=== PATIENT | female | born 1975 | race Caucasian/White ===

== ENCOUNTER 2017-02-18 03:25 | Emergency (ER) | payer BC ==
[2017-02-18] MEDS ORDERED: Phenergan 25 MG INJ IV ONE (03:50)
[2017-02-18] MEDS ORDERED: TORAdol 30 mg Injection IV ONE (03:50)
[2017-02-18] MEDS ORDERED: Phenergan 25 MG INJ ONE (03:56)
[2017-02-18] MEDS ORDERED: Sodium Chloride 0.9% 1000 ML 1,000 ML ONE (03:56)
[2017-02-18] MEDS ORDERED: TORAdol 30 mg Injection ONE (03:56)
--- NOTE | 2017-02-18 03:58 | ERPHSYRPT ---
- History of Present Illness Time Seen by Provider: 02/18/17 03:45 Source: patient Exam Limitations: no limitations Patient Subjective Stated Complaint: pt states she has been having pain for the last 2 days days which srtarted in her back. states pain is now in lt back/abd and radiating into lt groin. Triage Nursing Assessment: pt alert and oriented, asnwers questions approp. pt ambulatory with steady gait noted. respirations nonlabored with lungs cta. abd soft and nontender with bowel sounds noted in all 4 quads. pt voided small amt cloudy yellow urine. Physician History: FOR THE PAST 3 DAYS PT HAS HAD LEFT LOWER BACK PAIN RADIATING TO THE ABDOMINAL LLQ AND LEFT GROIN, FEVER UP TO 101 DEGREES, CHILLS, DIAPHORESIS AND NAUSEA. LAST BM WAS YESTERDAY & WNL. PT HAS ALSO HAD A COUGH AND SINUS DRAINAGE FOR THE PAST WEEK. PT STATES SHE HAS HAD ELEVATED LIVER FUNCTION TESTS IN THE PAST. Allergies/Adverse Reactions: No Known Drug Allergies Allergy (Verified 02/18/17 03:41) Home Medications: Levothyroxine Sodium 75 Mcg [Synthroid 75 Mcg] 75 mcg PO DAILY 02/18/17 [ History] Loratadine 10 mg [Claritin 10 mg] 10 mg PO DAILY 02/18/17 [History] Rizatriptan Benzoate [Maxalt] mg PO 02/18/17 [History] Triamterene/Hydrochlorothiazid [Maxzide 37.5 mg-25 mg Tablet] 1 each PO DAILY [History] Hx Tetanus, Diphtheria Vaccination/Date Given: No Hx Influenza Vaccination/Date Given: No Hx Pneumococcal Vaccination/Date Given: No Immunizations Up to Date: No - Review of Systems Constitutional: Fever, Chills Ears, Nose, & Throat: Sinus Drainage Respiratory: Cough Abdominal/Gastrointestinal: Abdominal Pain, Nausea, No Vomiting, No Diarrhea Musculoskeletal: Back Pain Endocrine: Excessive Sweating All Other Systems: Reviewed and Negative - Past Medical History Pertinent Past Medical History: Yes Neurological History: No Pertinent History ENT History: No Pertinent History Cardiac History: No Pertinent History Respiratory History: No Pertinent History Endocrine Medical History: Diabetes Type II, Hypothyroidism Musculoskeletal History: No Pertinent History GI Medical History: No Pertinent History History: Other Psycho-Social History: No Pertinent History Female Reproductive Disorders: Menstrual Problems Other Medical History: kidney stone mult times - Past Surgical History Past Surgical History: Yes Neuro Surgical History: No Pertinent History Cardiac: No Pertinent History Respiratory: No Pertinent History Gastrointestinal: No Pertinent History Genitourinary: No Pertinent History Musculoskeletal: No Pertinent History Female Surgical History: No Pertinent History, Section, Hysterectomy Other Surgical History: FISTULA REPAIR 02/03, cysto - Social History Smoking Status: Current every day smoker How long have you smoked: 16 Exposure to second hand smoke: Yes Drug Use: none Patient Lives Alone: No - Female History Hx Last Menstrual Period: hyster Hx Now: No - Nursing Vital Signs Nursing Vital Signs: Initial Vital Signs Temperature 99.3 F 02/18/17 03:26 Pulse Rate 93 H 02/18/17 03:26 Respiratory Rate 18 02/18/17 03:26 Blood Pressure 124/80 02/18/17 03:26 O2 Sat by Pulse Oximetry 97 02/18/17 03:26 Pain Scale Pain Intensity 6 - Physical Exam General Appearance: alert Eye Exam: PERRL/EOMI Ears, Nose, Throat Exam: TMs normal, pharynx normal, moist mucous membranes Neck Exam: normal inspection Respiratory Exam: lungs clear Cardiovascular Exam: normal heart sounds Gastrointestinal/Abdomen Exam: soft, normal bowel sounds, No tenderness Back Exam: normal range of motion Extremity Exam: normal inspection, No pedal edema Neurologic Exam: alert, cooperative Skin Exam: warm, dry SpO2 Interpretation: normal SpO2: 97 Oxygen Delivery: Room Air - Course Nursing assessment & vital signs reviewed: Yes - CT Exams Abdomen/Pelvis CT Interpretation: Tele-radiologist Report (THERE ARE DILATED SEGMENTS OF SMALL BOWEL IN THE LEFT SIDE OF THE ABDOMEN AT MOST LIKELY REPRESENT ILEUS. NONOBSTRUCTING RIGHT RENAL CALCULUS.) Ordered Tests: Active Orders 24 hr Category Date Time Status Clean Catch Urine Specimen STAT Care 02/18/17 03:50 Active IV Insertion STAT Care 02/18/17 03:50 Active ABDOMEN AND PELVIS W/0 CONTRAS [CT] Stat Exams 02/18/17 03:51 Taken AMYLASE Stat Lab 02/18/17 04:01 Completed CBC W DIFF Stat Lab 02/18/17 04:01 Completed CMP Stat Lab 02/18/17 04:01 Completed CULTURE,URINE Stat Lab 02/18/17 04:01 Received HCG QUALITATIVE,SERUM Stat Lab 02/18/17 04:01 Completed LIPASE Stat Lab 02/18/17 04:01 Completed MAG [MAGNESIUM] Stat Lab 02/18/17 04:01 Completed Manual Differential NC Stat Lab 02/18/17 04:01 Completed UA W/ MICROSCOPIC Stat Lab 02/18/17 04:01 Completed Urine Triage Profile Stat Lab 02/18/17 04:01 Completed Medication Summary Generic Name Dose Route Start Last Admin Trade Name Asa PRN Reason Stop Dose Admin Sodium Chloride 1,000 mls @ 125 mls/hr 02/18/17 04:00 02/18/17 04:01 Sodium Chloride 0.9% 1000 Ml IV 03/20/17 03:59 125 mls/hr .Q8H ZELDA Administration Magnesium Oxide 400 mg 02/18/17 10:00 Mag-Ox 400 PO 03/20/17 09:59 BID ZELDA Potassium Chloride 40 meq 02/18/17 10:00 Potassium Chl 40 Meq/30 Ml Oral Solution PO 03/20/17 09:59 DAILY ZELDA Discontinued Medications Generic Name Dose Route Start Last Admin Trade Name Asa PRN Reason Stop Dose Admin Ketorolac Tromethamine 30 mg 02/18/17 03:50 02/18/17 04:00 Toradol 30 Mg Injection IV 02/18/17 03:51 30 mg STAT ONE Administration Ketorolac Tromethamine Confirm 02/18/17 03:56 Toradol 30 Mg Injection Administered 02/18/17 03:57 Dose 30 mg .ROUTE .STK-MED ONE Promethazine HCl 12.5 mg 02/18/17 03:50 02/18/17 04:00 Phenergan 25 Mg Inj IV 02/18/17 03:51 12.5 mg STAT ONE Administration Promethazine HCl Confirm 02/18/17 03:56 Phenergan 25 Mg Inj Administered 02/18/17 03:57 Dose 25 mg .ROUTE .STK-MED ONE Lab/Rad Data: Laboratory Result Diagrams 02/18/17 04:01 02/18/17 04:01 Laboratory Results 02/18/17 02/18/17 02/18/17 Range/Units 04:01 04:01 04:01 WBC (4.0-10.5) K/mm3 RBC (4.1-5.4) M/mm3 Hgb (12.0-16.0) gm/dl Hct (35-47) % MCV (78-100) fl MCH (26-32) pg MCHC (32-36) g/dl RDW (11.5-14.0) % Plt Count (150-450) K/mm3 MPV (6-9.5) fl Segmented Neutrophils (36.0-66.0) % Band Neutrophils (0.0-2.0) % Lymphocytes (Manual) (24-44) % Monocytes (Manual) (0.0-12.0) % Eosinophils (Manual) (0.00-3.0) % Differential Comment Atypical Lymphocytes % Platelet Estimate (NORMAL) Sodium (136-145) mEq/L Potassium (3.5-5.1) mEq/L Chloride (98-107) mEq/L Carbon Dioxide (21-32) mEq/L Anion Gap (5-15) MEQ/L BUN (9-20) mg/dL Creatinine (0.55-1.30) mg/dl Estimated GFR ML/MIN Glucose (70-110) MG/DL Calcium (8.5-10.1) mg/dL Magnesium 1.5 L (1.8-2.4) mg/dL Total Bilirubin (0.2-1.0) mg/dL AST (15-37) U/L ALT (12-78) U/L Alkaline Phosphatase (46-116) U/L Serum Total Protein (6.4-8.2) gm/dL Albumin (3.4-5.0) g/dL Amylase (25-115) U/L Lipase (73-393) U/L Serum , Qual NEGATIVE (Negative) Ur Collection Type Urine Color (YELLOW) Urine Appearance (CLEAR) Urine pH (5-6) Ur Specific Hanna (1.005-1.025) Urine Protein (Negative) Urine Ketones (NEGATIVE) Urine Blood (0-5) Sunday/ul Urine Nitrite (NEGATIVE) Urine Bilirubin (NEGATIVE) Urine Urobilinogen (0-1) mg/dL Ur Leukocyte Esterase (NEGATIVE) Urine Microscopic RBC (0-2) /HPF Urine Microscopic WBC (0-5) /HPF Ur Epithelial Cells (FEW) /HPF Calcium Oxalate Crystal (NEGATIVE) /HPF Urine Bacteria (NEGATIVE) /HPF Urine Glucose (NEGATIVE) mg/dL Urine Opiates Level POS. (NEGATIVE) Ur Methadone NEG. (NEGATIVE) Urine Barbiturates NEG. (NEGATIVE) Ur Phencyclidine (PCP) NEG. (NEGATIVE) Urine Amphetamine NEG. (NEGATIVE) U Benzodiazepine Level NEG. (NEGATIVE) Urine Cocaine NEG. (NEGATIVE) Urine Marijuana (THC) NEG. (NEGATIVE) Specimen Received 02/18/17 02/18/17 02/18/17 Range/Units 04:01 04:01 04:01 WBC 5.9 (4.0-10.5) K/mm3 RBC 4.17 (4.1-5.4) M/mm3 Hgb 13.9 (12.0-16.0) gm/dl Hct 39.4 (35-47) % MCV 94.5 (78-100) fl MCH 33.3 H (26-32) pg MCHC 35.3 (32-36) g/dl RDW 12.1 (11.5-14.0) % Plt Count 129 L (150-450) K/mm3 MPV 12.1 H (6-9.5) fl Segmented Neutrophils 63 (36.0-66.0) % Band Neutrophils 7 H (0.0-2.0) % Lymphocytes (Manual) 14 L (24-44) % Monocytes (Manual) 2 (0.0-12.0) % Eosinophils (Manual) 4 H (0.00-3.0) % Differential Comment NORMAL Atypical Lymphocytes 10 % Platelet Estimate NORMAL (NORMAL) Sodium 142 (136-145) mEq/L Potassium 2.9 L* (3.5-5.1) mEq/L Chloride 105 (98-107) mEq/L Carbon Dioxide 27.0 (21-32) mEq/L Anion Gap 13.3 (5-15) MEQ/L BUN 14 (9-20) mg/dL Creatinine 0.94 (0.55-1.30) mg/dl Estimated GFR > 60 ML/MIN Glucose 105 (70-110) MG/DL Calcium 8.8 (8.5-10.1) mg/dL Magnesium (1.8-2.4) mg/dL Total Bilirubin 0.30 (0.2-1.0) mg/dL AST 180 H (15-37) U/L ALT 371 H (12-78) U/L Alkaline Phosphatase 175 H (46-116) U/L Serum Total Protein 7.0 (6.4-8.2) gm/dL Albumin 3.2 L (3.4-5.0) g/dL Amylase 50 (25-115) U/L Lipase 81 (73-393) U/L Serum , Qual (Negative) Ur Collection Type VOID Urine Color YELLOW (YELLOW) Urine Appearance CLEAR (CLEAR) Urine pH 6.0 (5-6) Ur Specific Hanna 1.020 (1.005-1.025) Urine Protein TRACE (Negative) Urine Ketones NEGATIVE (NEGATIVE) Urine Blood 50 (0-5) Sunday/ul Urine Nitrite NEGATIVE (NEGATIVE) Urine Bilirubin NEGATIVE (NEGATIVE) Urine Urobilinogen NORMAL (0-1) mg/dL Ur Leukocyte Esterase TRACE (NEGATIVE) Urine Microscopic RBC 2-5 (0-2) /HPF Urine Microscopic WBC 0-2 (0-5) /HPF Ur Epithelial Cells MODERATE (FEW) /HPF Calcium Oxalate Crystal 0-2 (NEGATIVE) /HPF Urine Bacteria FEW (NEGATIVE) /HPF Urine Glucose NEGATIVE (NEGATIVE) mg/dL Urine Opiates Level (NEGATIVE) Ur Methadone (NEGATIVE) Urine Barbiturates (NEGATIVE) Ur Phencyclidine (PCP) (NEGATIVE) Urine Amphetamine (NEGATIVE) U Benzodiazepine Level (NEGATIVE) Urine Cocaine (NEGATIVE) Urine Marijuana (THC) (NEGATIVE) Specimen Received 02/17/17 0400 - Departure Time of Disposition: 06:18 Departure Disposition: Home Clinical Impression: LOW BACK PAIN, ABDOMINAL PAIN, HYPOKALEMIA, HYPOMAGNESEMIA Condition: Stable Critical Care Time: No Referrals: BAL CAGE [Primary Care Provider] - Instructions: Abdominal Pain-Adult Additional Instructions: FOLLOW UP WITH PRIVATE DOCTOR TOMORROW. Prescriptions: Naproxen [Naprosyn] 500 mg PO [id number] PRN #20 tablet PRN Reason: Pain
[2017-02-18] MEDS ORDERED: Sodium Chloride 0.9% 1000 ML 1,000 ML IV SCH (04:00)
[2017-02-18 04:05] LABS: Mean Cell Volume 94.5 fl (78-100); Mean Corpuscular Hemoglobin 33.3 pg (26-32); Mean Platelet Volume 12.1 fl (6-9.5); Platelet Count 129 K/mm3 (150-450); Red Blood Count 4.17 M/mm3 (4.1-5.4); Red Cell Distribution Width 12.1 % (11.5-14.0); White Blood Count 5.9 K/mm3 (4.0-10.5)
[2017-02-18 04:27] LABS: ADD URINE CULTURE? YES (NO); Bacteria FEW /HPF (NEGATIVE); Bilirubin NEGATIVE (NEGATIVE); Blood 50 Ery/ul (0-5); CALCIUM OXALATE CRYSTALS 0-2 /HPF (NEGATIVE); COMPLETE URINE MICROSCOPIC? YES; Collection Type VOID; Epithelial Cells MODERATE /HPF (FEW); Glucose NEGATIVE (NEGATIVE); Leukocyte Esterase TRACE (NEGATIVE); WBC 0-2 /HPF (0-5)
[2017-02-18 04:29] LABS: ALBUMIN 3.2 g/dL (3.4-5.0); ALKALINE PHOSPHATASE 175 U/L (46-116); ANION GAP 13.3 MEQ/L (5-15); BLOOD UREA NITROGEN 14 mg/dL (9-20); CHLORIDE 105 mEq/L (98-107); Glucose 105 MG/DL (70-110); LIPASE 81 U/L (73-393); SGOT/AST 180 U/L (15-37); SGPT/ALT 371 U/L (12-78); SODIUM 142 mEq/L (136-145)
[2017-02-18 04:31] LABS: Potassium 2.9 mEq/L (3.5-5.1)
[2017-02-18 04:44] LABS: ATYPICAL LYMPHS 10 %; BAND 7 % (0.0-2.0); Eosinophil 4 % (0.00-3.0); Total Cells Counted 100
[2017-02-18 04:45] LABS: Platelet Estimate NORMAL (NORMAL)
[2017-02-18] MEDS ORDERED: Hydromorphone 1 mg/ml Ampule IV ONE (06:12)
[2017-02-18] MEDS ORDERED: MAG-OX 400 ONE (06:22)
[2017-02-18] MEDS ORDERED: POTASSIUM CHLORIDE 20 MEQ POWDER FOR ORAL SOL ONE (06:22)
[2017-02-18] MEDS ORDERED: Hydromorphone 1 mg/ml Ampule ONE (06:22)
[2017-02-18] MEDS ORDERED: POTASSIUM CHLORIDE 20 MEQ POWDER FOR ORAL SOL PO ONE (06:30)
[2017-02-18 07:05] VITALS: BP 86/53; PULSE 70; O2SAT 98
[2017-02-18] MEDS ORDERED: POTASSIUM CHL 40 MEQ/30 ML ORAL SOLUTION PO SCH (10:00)
[2017-02-18] MEDS ORDERED: MAG-OX 400 PO SCH (10:00)
--- NOTE | 2017-02-20 02:23 | XRAY ---
Exam: CT of the abdomen and pelvis without IV contrast from 02/18/2017. CTDI: 13.78 Comparison: CT of the abdomen and pelvis without IV contrast from 02/25/2013. Indication: Left lower quadrant abdominal pain 2 days with nausea, right flank pain 1 day, difficulty urinating, history of renal stones, no hematuria, history of prior section, complete hysterectomy, bladder fistula repair, and left ureteral stent placement and removal and past. Technique: Non-IV contrast axial images were obtained through the abdomen and pelvis without IV contrast material. Reconstructed coronal and sagittal images were created and reviewed. No oral contrast was given. Findings: The lung bases are essentially clear. The transverse heart size is normal. Assessment of the solid organs is limited without the use of IV contrast. The liver is not enlarged. No intrahepatic biliary duct distention is seen. The gallbladder is partially distended and reveals no dense calcifications within it. The spleen measures a maximum of 13.7 cm in greatest craniocaudal dimension on coronal image #85 which is borderline to slightly enlarged. No splenic mass is seen. There is equivocal evidence of a minimal hiatal hernia. There is mild circumferential distal thoracic esophageal wall thickening on axial image #12. This is unchanged. Consider esophagitis or GERD. The pancreas and adrenal glands appear unremarkable. The kidneys are of unremarkable size and shape. A nonobstructing 3 mm stone is again seen overlying the lower pole of the right kidney. This appears larger than that seen on 02/25/2013. I believe there is another tiny stone within the lower pole of the right kidney on axial image #36 of series #2. No other renal calculi or hydronephrosis is seen. The ureters appear of unremarkable diameter and reveal no ureterolith. The urinary bladder is almost empty limiting its assessment. The abdominal aorta is of normal diameter. Some shotty retroperitoneal lymph nodes are again seen representing no significant change from 02/25/2013. No definite pathological lymphadenopathy is seen. I believe there are also some small mesenteric lymph nodes within the upper and midabdomen. There is no free intraperitoneal air. No ventral abdominal wall hernia is seen. Moderate fecal residue is seen within the right hemicolon. There is slight prominence of the small bowel within the left upper quadrant and left midabdomen. This is relatively nonspecific. Consider a mild ileus. The appendix appears normal. Both the uterus and ovaries are surgically absent. Calcified phleboliths are seen within the lower pelvis. I see no findings of significant diverticulosis or diverticulitis, particularly within the left lower quadrant. Some calcified phleboliths are seen within the lower pelvis on each side of midline. The skeleton reveals no acute fracture or aggressive bone lesion. Impression: 1. There is a 3 mm in diameter nonobstructing stone within the lower pole of the right kidney which is slightly larger than that seen on 03/07/2013. Also, I believe there is a second tiny nonobstructing stone within the lower pole of the right kidney on axial image #36 of series #2. There is no hydronephrosis or acute obstructive uropathy. The ureters are of normal diameter and reveal no ureterolith. The urinary bladder is mostly empty making assessment difficult at this level. 2. There is occasional minimal prominence of the small bowel within the left upper quadrant and left midabdomen. I believe this is nonspecific. Consider a mild ileus. 3. I also note some shotty scattered lymph nodes within the abdominal mesentery and retroperitoneal region which appear similar to 02/25/2013. No definite abnormal retroperitoneal lymphadenopathy is seen. 4. There is a suggestion of a minimal hiatal hernia. In addition, I believe there is some mild concentric wall thickening about the distal thoracic esophagus on axial image #12. Consider esophagitis or GERD. 5. Borderline to slight splenomegaly. 6. Normal appendix. 7. Moderate fecal retention within the right hemicolon. No other bowel obstruction is seen. No free air or significant free fluid is seen. 8. I see no evidence of significant colonic diverticulosis or diverticulitis, particularly within the left lower quadrant.
== END 2017-02-18 07:07 | disposition home or self-care (01) ==
LOC: ED 03:25
DX: M54.5 Low back pain (principal); R10.9 Unspecified abdominal pain; E87.6 Hypokalemia; E83.42 Hypomagnesemia
CPT/HCPCS: 36000; 36415; 74176; 80053; 80307; 81000; 82150; 83690; 83735; 84703; 85025; 87086; 96360; 96374; 96375; 99284; J1170; J1885; J2550; A9270-GY

== ENCOUNTER 2017-11-10 16:41 | Emergency (ER) | payer BC ==
--- NOTE | 2017-11-10 18:24 | ERPHSYRPT ---
- History of Present Illness Time Seen by Provider: 11/10/17 18:19 Source: patient Exam Limitations: no limitations Patient Subjective Stated Complaint: Numbness to face around nose bilateral sides of nose, dizziness. Triage Nursing Assessment: Pt presents to the ED with complaints of tingling around nose began at 1600, followed shortly after by dizziness. No distress noted, skin PWD, pt denies other complaints. NIH 0. Physician History: patient presents with productive cough, nasal drainage, headache and dizziness for 3-4 days. Patient has cough with green sputum, yellow nasal drainage, and headache which seemed to be worsening. Patient noted increased pressure to the frontal and nasal area along with some tingling to both sides of face as well. Patient without any blurred vision, facial/focal deficits of weakness, no altered mental status in no speech deficit. Patient denies any fever, chills , nausea, vomiting, diarrhea, shortness of breath, chest/abdominal pain or urinary symptoms. Patient with previous sinusitis with similar symptoms Timing/Duration: day(s) (4), intermittent Severity: moderate Modifying Factors: Improves With: nothing Associated Symptoms: headaches, other (tingling to bilateral face), No nausea, No vomiting, No syncope, No seizure Allergies/Adverse Reactions: No Known Drug Allergies Allergy (Verified 02/18/17 03:41) Home Medications: Levothyroxine Sodium 75 Mcg [Synthroid 75 Mcg] 75 mcg PO DAILY 02/18/17 [ History] Triamterene/Hydrochlorothiazid [Maxzide 37.5 mg-25 mg Tablet] 1 each PO DAILY [History] Hx Tetanus, Diphtheria Vaccination/Date Given: No Hx Influenza Vaccination/Date Given: Yes Hx Pneumococcal Vaccination/Date Given: No Immunizations Up to Date: No - Review of Systems Constitutional: Fatigue, Malaise, No Fever, No Chills Eyes: No Symptoms Ears, Nose, & Throat: Ear Pain, Nose Discharge, Sinus Drainage, No Tinnitus Respiratory: Cough (yellow/green sputum), No Dyspnea, No Dyspnea on Exertion ( PARNELL) Cardiac: No Symptoms, No Chest Pain, No Edema, No Syncope Abdominal/Gastrointestinal: No Symptoms, No Abdominal Pain, No Nausea, No Vomiting, No Diarrhea Genitourinary Symptoms: No Symptoms, No Dysuria Musculoskeletal: No Symptoms, No Back Pain, No Neck Pain Skin: No Symptoms, No Rash Neurological: No Symptoms, No Dizziness, No Focal Weakness, No Sensory Changes Psychological: No Symptoms Endocrine: No Symptoms Hematologic/Lymphatic: No Symptoms Immunological/Allergic: No Symptoms All Other Systems: Reviewed and Negative - Past Medical History Pertinent Past Medical History: Yes Neurological History: No Pertinent History ENT History: No Pertinent History Cardiac History: No Pertinent History Respiratory History: No Pertinent History Endocrine Medical History: Diabetes Type II, Hypothyroidism Musculoskeletal History: No Pertinent History GI Medical History: No Pertinent History History: Other Psycho-Social History: No Pertinent History Female Reproductive Disorders: Menstrual Problems Other Medical History: kidney stone mult times - Past Surgical History Past Surgical History: Yes Neuro Surgical History: No Pertinent History Cardiac: No Pertinent History Respiratory: No Pertinent History Gastrointestinal: No Pertinent History Genitourinary: No Pertinent History Musculoskeletal: No Pertinent History Female Surgical History: No Pertinent History, Section, Hysterectomy Other Surgical History: FISTULA REPAIR 02/03, cysto - Social History Smoking Status: Current every day smoker How long have you smoked: 25 years Exposure to second hand smoke: Yes Drug Use: none Patient Lives Alone: No - Female History Hx Now: No - Nursing Vital Signs Nursing Vital Signs: Initial Vital Signs Temperature 98.5 F 11/10/17 17:20 Pulse Rate 82 11/10/17 17:20 Respiratory Rate 16 11/10/17 17:20 Blood Pressure 125/84 11/10/17 17:20 O2 Sat by Pulse Oximetry 99 11/10/17 17:20 Pain Scale Pain Intensity 1 - Physical Exam General Appearance: no apparent distress, alert Eye Exam: PERRL/EOMI, eyes nml inspection Ears, Nose, Throat Exam: normal ENT inspection, TMs normal, pharynx normal, moist mucous membranes, other (mild tenderness to the frontal and maxillary sinus to palpation) Neck Exam: normal inspection, non-tender, supple, full range of motion Respiratory Exam: normal breath sounds, lungs clear, No respiratory distress Cardiovascular Exam: regular rate/rhythm, normal heart sounds, normal peripheral pulses Gastrointestinal/Abdomen Exam: soft, normal bowel sounds, No tenderness, No mass Back Exam: normal inspection, normal range of motion, No CVA tenderness, No vertebral tenderness Extremity Exam: normal inspection, normal range of motion, pelvis stable Neurologic Exam: alert, oriented x 3, cooperative, normal mood/affect, nml cerebellar function, nml station & gait, sensation nml, No motor deficits Skin Exam: normal color, warm, dry, No rash Lymphatic Exam: No adenopathy SpO2: 99 Oxygen Delivery: Room Air - Course Nursing assessment & vital signs reviewed: Yes - Progress Progress: unchanged Counseled pt/family regarding: diagnosis - Departure Time of Disposition: 18:25 Departure Disposition: Home Clinical Impression: Sinusitis, Bronchitis Condition: Stable Critical Care Time: No Referrals: BAL CAGE [Primary Care Provider] - Instructions: Sinusitis in Adults, Acute Bronchitis Additional Instructions: Rx: Augmentin. May take Tylenol/Motrin for fever/discomfort. May also take Benadryl/Claritin for nasal congestion/discharge. Return for worse headaches, fever, vomiting, dizziness or any problems Forms: Work/School Release Form Prescriptions: Amox Tr/Potass Clav. 875 mg [Augmentin 875-125 Tablet] 875 mg PO BID 10 Days #20 tablet
[2017-11-10 18:37] VITALS: BP 103/76; PULSE 72; O2SAT 97
== END 2017-11-10 18:37 | disposition home or self-care (01) ==
LOC: ED 16:41
DX: J32.9 Chronic sinusitis, unspecified (principal); J40 Bronchitis, not specified as acute or chronic; R51 Headache; R42 Dizziness and giddiness
CPT/HCPCS: 99283

== ENCOUNTER 2022-01-01 07:39 | Emergency (ER) | payer BC, OTHER ==
[2022-01-01 07:53] VITALS: O2SAT 98
[2022-01-01] MEDS ORDERED: Sodium Chloride 0.9% 1000 ML 1,000 ML IV STA (07:54)
[2022-01-01] MEDS ORDERED: TYLENOL 325 MG PO ONE (07:54)
[2022-01-01] MEDS ORDERED: TYLENOL 325 MG ONE (07:59)
[2022-01-01] MEDS ORDERED: Sodium Chloride 0.9% 1000 ML 1,000 ML ONE (07:59)
--- NOTE | 2022-01-01 07:59 | ERPHSYRPT ---
- History of Present Illness Time Seen by Provider: 01/01/22 07:55 Source: patient Exam Limitations: no limitations Patient Subjective Stated Complaint: Pt states "I was slip and sliding and hit my left side and it has been hurting ever since." Triage Nursing Assessment: Pt presented alert and oriented X 3, ski npwd. pt ambulates with an upright steady gait, able to speak in clear full sentences. PT has tenderness noted to left ribs. Physician History: Patient is a 46-year-old female presents to emergency department for evaluation of left rib pain. Patient states she was on a slip and slide last Wednesday. Patient fell onto her left side. Patient complains of pain to her left rib area and flank. Injury occurred approximately 4 days ago. Symptoms have not improved patient believes her pain has worsened. No syncope. No lightheadedness. No BHT or LOC. No neck pain. Cervical spine cleared clinically. Patient is otherwise healthy. She voices no other complaints or concerns at this time. Timing/Duration: day(s) (4 days ago) Severity: moderate Modifying Factors: Improves With: other (Palpation and movement to the left flank and ribs 678 reproduce pain.) Associated Symptoms: denies symptoms Allergies/Adverse Reactions: No Known Drug Allergies Allergy (Verified 02/18/17 03:41) Home Medications: Duloxetine HCl 30 mg [Cymbalta 30 MG Capsule] 30 mg PO 01/01/22 [History] Levothyroxine Sodium 01/01/22 [History] Hx Tetanus, Diphtheria Vaccination/Date Given: No Hx Influenza Vaccination/Date Given: Yes Hx Pneumococcal Vaccination/Date Given: No Immunizations Up to Date: Yes Travel Risk - International Travel Have you traveled outside of the country in past 3 weeks: No - Coronavirus Screening Are you exhibiting any of the following symptoms?: No Close contact with a COVID-19 positive Pt in past 14-21 Days: No - Vaccine Status Have you recieved a Covid-19 vaccination: Yes 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 - Vaccination Dates Date of 2cond Vaccination (if applicable): 2020 - Review of Systems Constitutional: No Symptoms, No Fever, No Chills Eyes: No Symptoms Ears, Nose, & Throat: No Symptoms Respiratory: No Symptoms, No Cough, No Dyspnea Cardiac: No Chest Pain, No Edema, No Syncope Abdominal/Gastrointestinal: No Symptoms, No Abdominal Pain, No Nausea, No Vomiting, No Diarrhea Genitourinary Symptoms: No Symptoms, No Dysuria Musculoskeletal: No Symptoms, No Back Pain, No Neck Pain Skin: No Symptoms, No Rash Neurological: No Symptoms, No Dizziness, No Focal Weakness, No Sensory Changes Psychological: No Symptoms Endocrine: No Symptoms Hematologic/Lymphatic: No Symptoms Immunological/Allergic: No Symptoms All Other Systems: Reviewed and Negative - Past Medical History Pertinent Past Medical History: Yes Neurological History: No Pertinent History ENT History: No Pertinent History Cardiac History: No Pertinent History Respiratory History: No Pertinent History Endocrine Medical History: Diabetes Type II, Hypothyroidism Musculoskeletal History: No Pertinent History GI Medical History: No Pertinent History History: Other Psycho-Social History: No Pertinent History Female Reproductive Disorders: Menstrual Problems Other Medical History: kidney stone mult times - Past Surgical History Past Surgical History: Yes Neuro Surgical History: No Pertinent History Cardiac: No Pertinent History Respiratory: No Pertinent History Gastrointestinal: No Pertinent History Genitourinary: No Pertinent History Musculoskeletal: No Pertinent History Female Surgical History: No Pertinent History, Section, Hysterectomy Other Surgical History: FISTULA REPAIR 02/03, cysto - Social History Smoking Status: Current every day smoker How long have you smoked: 25 years Exposure to second hand smoke: Yes Drug Use: none Patient Lives Alone: No - Female History Hx Last Menstrual Period: hysterectomy Hx Now: No - Nursing Vital Signs Nursing Vital Signs: Initial Vital Signs Temperature 97.5 F 01/01/22 07:47 Pulse Rate 85 01/01/22 07:47 Respiratory Rate 20 01/01/22 07:47 Blood Pressure 162/94 01/01/22 07:47 O2 Sat by Pulse Oximetry 98 01/01/22 07:47 Pain Scale Pain Intensity 6 - Physical Exam General Appearance: no apparent distress, alert Eye Exam: PERRL/EOMI, eyes nml inspection Ears, Nose, Throat Exam: normal ENT inspection, TMs normal, pharynx normal, moist mucous membranes Neck Exam: normal inspection, non-tender, supple, full range of motion Respiratory Exam: normal breath sounds, lungs clear, airway intact, No respiratory distress Cardiovascular Exam: regular rate/rhythm, normal heart sounds, normal peripheral pulses Gastrointestinal/Abdomen Exam: soft, normal bowel sounds, other (Tenderness to palpation left flank left upper quadrant and ribs 6 7 and 8. Overlying soft tissue intact. No signs of trauma. No ecchymosis. No swelling.), No tenderness, No mass Pelvic Exam: not done Back Exam: normal inspection, normal range of motion, No CVA tenderness, No vertebral tenderness Extremity Exam: normal inspection, normal range of motion, pelvis stable Neurologic Exam: alert, oriented x 3, cooperative, normal mood/affect, nml cerebellar function, nml station & gait, sensation nml, No motor deficits Skin Exam: normal color, warm, dry, No rash Lymphatic Exam: No adenopathy SpO2 Interpretation: normal SpO2: 98 O2 Delivery: Room Air - Course Nursing assessment & vital signs reviewed: Yes - CT Exams Abdomen/Pelvis CT Interpretation: Tele-radiologist Report (Fecal stasis, distended urinary bladder small hiatal hernia) Ordered Tests: Active Orders 24 hr Category Date Time Status ABDOMEN AND PELVIS W CONTRAST [CT] Stat Exams 01/01/22 07:53 Completed CBC W DIFF Stat Lab 01/01/22 08:00 Completed CMP Stat Lab 01/01/22 08:00 Completed UA W/RFX CULTURE Stat Lab 01/01/22 09:42 Completed Medication Summary Discontinued Medications Generic Name Dose Route Start Last Admin Trade Name Asa PRN Reason Stop Dose Admin Acetaminophen 975 mg 01/01/22 07:54 01/01/22 08:00 Acetaminophen 325 Mg Tablet PO 01/01/22 07:55 975 mg STAT ONE Administration Acetaminophen Confirm 01/01/22 07:59 Acetaminophen 325 Mg Tablet Administered 01/01/22 08:00 Dose 975 mg .ROUTE .STK-MED ONE Sodium Chloride 1,000 mls @ 999 mls/hr 01/01/22 07:54 01/01/22 08:05 Sodium Chloride 0.9% 1000 Ml IV 01/01/22 08:54 999 mls/hr .Q1H1M STA Administration Sodium Chloride Confirm 01/01/22 07:59 Sodium Chloride 0.9% 1000 Ml Administered 01/01/22 08:00 Dose 1,000 mls @ ud .ROUTE .STK-MED ONE Lab/Rad Data: Laboratory Result Diagrams 01/01/22 08:00 01/01/22 08:00 Laboratory Results 01/01/22 01/01/22 01/01/22 Range/Units 09:42 08:00 08:00 WBC 7.9 (4.0-10.5) x10^3/uL RBC 3.95 L (4.1-5.4) x10^6/uL Hgb 13.5 (12.0-16.0) g/dL Hct 38.9 (35-47) % MCV 98.5 (78-100) fL MCH 34.2 H (26-32) pg MCHC 34.7 (32-36) g/dL RDW 12.6 (11.5-14.0) % Plt Count 226 (150-450) x10^3/uL MPV 10.6 (7.5-11.0) fL Gran % 51.4 (36.0-66.0) % Immature Gran % (Auto) 0.3 (0.00-0.4) % Nucleat RBC Rel Count 0.0 (0.00-0.1) % Eos # (Auto) 0.41 (0-0.5) x10^3/uL Immature Gran # (Auto) 0.02 (0.00-0.03) x10^3u/L Absolute Lymphs (auto) 2.99 (1.0-4.6) x10^3/uL Absolute Monos (auto) 0.35 (0.0-1.3) x10^3/uL Absolute Nucleated RBC 0.00 (0.00-0.01) x10^3u/L Lymphocytes % 37.7 (24.0-44.0) % Monocytes % 4.4 (0.0-12.0) % Eosinophils % 5.2 H (0.00-5.0) % Basophils % 1.0 (0.0-0.4) % Absolute Granulocytes 4.09 (1.4-6.9) x10^3/uL Basophils # 0.08 (0-0.4) x10^3/uL Sodium 137 (137-145) mmol/L Potassium 3.7 (3.5-5.1) mmol/L Chloride 103 (98-107) mmol/L Carbon Dioxide 25 (22-30) mmol/L Anion Gap 12.1 (5-15) MEQ/L BUN 12 (7-17) mg/dL Creatinine 0.92 (0.52-1.04) mg/dL Estimated GFR > 60.0 ML/MIN Glucose 110 H (74-106) mg/dL Calcium 9.1 (8.4-10.2) mg/dL Total Bilirubin 0.30 (0.2-1.3) mg/dL AST 128 H (14-36) U/L ALT 81 H (0-35) U/L Alkaline Phosphatase 100 (38-126) U/L Serum Total Protein 8.0 (6.3-8.2) g/dL Albumin 4.1 (3.5-5.0) g/dL Urinalys Dipstick Clnc MAIN LAB Urine Color YELLOW (YELLOW) Urine Appearance CLEAR (CLEAR) Urine pH 6.0 (5-6) Ur Specific [place] <=1.005 (1.005-1.025) POC Urine Protein Conf NEGATIVE (Negative) Urine Ketones NEGATIVE (NEGATIVE) Urine Nitrite NEGATIVE (NEGATIVE) Urine Bilirubin NEGATIVE (NEGATIVE) Urine Urobilinogen 0.2 (0-1) mg/dL Urine Leukocytes NEGATIVE (NEGATIVE) Urine WBC (Auto) NONE (0-5) /HPF Urine RBC (Auto) NONE (0-2) /HPF U Epithel Cells (Auto) NONE (FEW) /HPF Urine Bacteria (Auto) NONE (NEGATIVE) /HPF Urine RBC NEGATIVE (0-5) Sunday/ul Ur Culture Indicated? NO Urine Glucose NEGATIVE (NEGATIVE) mg/dL - Progress Progress: improved Progress Note: Patient reassessed. She feels well. Work-up essentially unremarkable. Spleen is intact. No splenic injury observed. No rib fractures observed on CAT scan. Laboratory work-up essentially nonremarkable. Patient likely experiencing pain from a rib contusion. No indication for further work-up at this time. Will discharge home. No chest pain or shortness of breath no nausea vomiting or diaphoresis. Portions of this note were created with voice recognition technology. There may be grammatical, spelling, punctuation or sound alike errors 01/01/22 10:10 Counseled pt/family regarding: lab results, diagnosis, need for follow-up, rad results - Departure Departure Disposition: Home Clinical Impression: Fall, Contusion of rib on left side Condition: Stable Critical Care Time: No Referrals: BAL CAGE [Primary Care Provider] - Follow up/PCP as directed Additional Instructions: Discharge/Care Plan VINNIE PAZ was seen on 01/01/22 in the Emergency Room. The patient was counseled regarding Diagnosis,Lab results, Imaging studies, need for follow up and when to return to the Emergency Room. Prescriptions given: Discharge Note I have spoken with the patient and/or caregivers. I have explained the patient's condition, diagnosis and treatment plan based on the information available to me at this time. I have answered the patient's and/or caregiver's questions and addressed any concerns. The patient and/or caregivers have as good understanding of the patient's diagnosis, condition and treatment plan as can be expected at this point. The vital signs have been stable. The patient's condition is stable and appropriate for discharge from the emergency department. The patient will pursue further outpatient evaluation with the primary care physician or other designated or consulting physician as outlined in the discharge instructions. The patient and/or caregivers are agreeable to this plan of care and follow-up instructions have been explained in detail. The patient and/or caregivers have received these instruction. The patient/and or caregivers are aware that any significant change in condition or worsening of symptoms should prompt an immediate return to this or the closest emergency department or call 911.
[2022-01-01 08:16] LABS: Absolute Neutrophil Ct (ANC) 4.09 x10^3/uL (1.4-6.9); Basophil (Absolute #) 0.08 x10^3/uL (0-0.4); Eosinophil % 5.2 % (0.00-5.0); Eosinophil (Absolute #) 0.41 x10^3/uL (0-0.5); Hematocrit 38.9 % (35-47); Hemoglobin 13.5 g/dL (12.0-16.0); Lymphocyte (Absolute #) 2.99 x10^3/uL (1.0-4.6); Lymphocytes % 37.7 % (24.0-44.0); Mean Cell Volume 98.5 fL (78-100); Mean Corpuscular Hemoglobin 34.2 pg (26-32); Mean Corpuscular Hgb Concent. 34.7 g/dL (32-36); Mean Platelet Volume 10.6 fL (7.5-11.0); Monocyte (Absolute #) 0.35 x10^3/uL (0.0-1.3); Monocytes % 4.4 % (0.0-12.0); Neutrophil % 51.4 % (36.0-66.0); Platelet Count 226 x10^3/uL (150-450); Red Blood Count 3.95 x10^6/uL (4.1-5.4); Red Cell Distribution Width 12.6 % (11.5-14.0); White Blood Count 7.9 x10^3/uL (4.0-10.5)
[2022-01-01 08:21] LABS: ALBUMIN 4.1 g/dL (3.5-5.0); ALKALINE PHOSPHATASE 100 U/L (38-126); ANION GAP 12.1 MEQ/L (5-15); BLOOD UREA NITROGEN 12 mg/dL (7-17); CHLORIDE 103 mmol/L (98-107); Calcium 9.1 mg/dL (8.4-10.2); Carbon Dioxide 25 mmol/L (22-30); Creatinine 1 0.92 mg/dL (0.52-1.04); EST GLOMERULAR FILTRATION RATE > 60.0 ML/MIN; Glucose 110 mg/dL (74-106); Potassium 3.7 mmol/L (3.5-5.1); SGOT/AST 128 U/L (14-36); SGPT/ALT 81 U/L (0-35); SODIUM 137 mmol/L (137-145)
[2022-01-01 09:58] LABS: Appearance CLEAR (CLEAR); Bilirubin NEGATIVE (NEGATIVE); Dipstick done @ ? MAIN LAB; Glucose NEGATIVE (NEGATIVE); Ketones NEGATIVE (NEGATIVE); Nitrite NEGATIVE (NEGATIVE); Protein,Urine Dip NEGATIVE (Negative); RBC NEGATIVE Ery/ul (0-5); Specific Gravity <=1.005 (1.005-1.025); Urine Cultured Indicated? NO; Urobilinogen 0.2 mg/dL (0-1)
--- NOTE | 2022-01-01 09:59 | XRAY ---
Indication: Left upper quadrant pain following fall 4 days ago. Splenic laceration. Multiple contiguous axial images obtained through the abdomen and pelvis using 80 cc Isovue 370 contrast. Comparison: February 18, 2017 Lung bases demonstrates moderate bilateral dependent atelectasis. Heart not enlarged. Again small hiatal hernia. Noncontrasted stomach and bowel loops are nonobstructed with normal appendix. There is now mild/moderate scattered fecal debris throughout greatest in the ascending and transverse colon. No free fluid/air. Urinary bladder is now markedly distended concerning for outlet obstruction versus neurogenic bladder. Remaining liver, gallbladder, pancreas, spleen, adrenal glands, kidneys, ureters, and bladder are unremarkable. Minimal aortoiliac calcifications. No AAA or pathologic retroperitoneal lymphadenopathy. Osseous structures intact. Impression: 1. New diffuse fecal stasis. 2. New markedly distended urinary bladder. Rule out outlet obstruction versus neurogenic bladder. 3. Again small hiatal hernia. 3. Remaining CT abdomen/pelvis with contrast exam is negative.
[2022-01-01 10:12] VITALS: BP 134/93; PULSE 72
== END 2022-01-01 10:28 | disposition home or self-care (01) ==
LOC: ED 07:39
DX: S20.212A Contusion of left front wall of thorax, initial encounter (principal); W01.0XXA Fall on same level from slipping, tripping and stumbling without subsequent striking against object, initial encounter; Y93.19 Activity, other involving water and watercraft; E11.9 Type 2 diabetes mellitus without complications; Z72.0 Tobacco use; Z79.899 Other long term (current) drug therapy
CPT/HCPCS: 36000; 36415; 74177; 80053; 81015; 85025; 96360; 99284; A9270-GY

== ENCOUNTER 2022-02-28 17:35 | Emergency (ER) | payer SELFPAY ==
[2022-02-28] MEDS ORDERED: PERCOCET TABLET 5/325MG PO STA (18:49)
[2022-02-28] MEDS ORDERED: MOTRIN 600 MG PO ONE (18:49)
--- NOTE | 2022-02-28 18:49 | ERPHSYRPT ---
- History of Present Illness Time Seen by Provider: 02/28/22 18:05 Source: patient, family Exam Limitations: no limitations Patient Subjective Stated Complaint: Patient c/o left foot injury/pain. States she missed the bottom step going down to her basement. Triage Nursing Assessment: Patient ambulated back to ED using crutches. No sock or shoe on injured foot. Skin intact to left foot with a large swollen, protrusion noted to top of foot. Pedal pulse present. Skin intact to foot. Physician History: This is a 46-year-old white female patient of Dr. Berry who was walking down into her basement when she missed the bottom step and then came her left foot. Patient presents with left foot pain and swelling. Method of Injury: other (Tripped and missed the last step going down the basement), fell Occurred: just prior to arrival Quality: constant, aching, throbbing Severity of Pain-Max: moderate Severity of Pain-Current: moderate Lower Extremities Pain: foot: left (Swelling and pain dorsal aspect left foot) Modifying Factors: Improves With: movement Associated Symptoms: other (Patient presented to the emergency department with crutches.) Allergies/Adverse Reactions: No Known Drug Allergies Allergy (Verified 02/28/22 17:47) Home Medications: Duloxetine HCl 30 mg [Cymbalta 30 MG Capsule] 30 mg PO DAILY 01/01/22 [History] Levothyroxine Sodium 1 tab PO DAILY 01/01/22 [History] Hx Tetanus, Diphtheria Vaccination/Date Given: Yes Hx Influenza Vaccination/Date Given: Yes Hx Pneumococcal Vaccination/Date Given: No Immunizations Up to Date: Yes Travel Risk - International Travel Have you traveled outside of the country in past 3 weeks: No - Coronavirus Screening Are you exhibiting any of the following symptoms?: No Close contact with a COVID-19 positive Pt in past 14-21 Days: No - Vaccine Status Have you 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 - Vaccination Dates Date of 2cond Vaccination (if applicable): 2020 - Review of Systems Constitutional: No Symptoms Eyes: No Symptoms Ears, Nose, & Throat: No Symptoms Respiratory: No Symptoms Cardiac: No Symptoms Abdominal/Gastrointestinal: No Symptoms Genitourinary Symptoms: No Symptoms Musculoskeletal: Injury (Foot) Skin: No Symptoms Neurological: No Symptoms Psychological: No Symptoms Endocrine: No Symptoms Hematologic/Lymphatic: No Symptoms Immunological/Allergic: No Symptoms All Other Systems: Reviewed and Negative - Past Medical History Pertinent Past Medical History: Yes Neurological History: No Pertinent History ENT History: No Pertinent History Cardiac History: No Pertinent History Respiratory History: No Pertinent History Endocrine Medical History: Diabetes Type II, Hypothyroidism Musculoskeletal History: No Pertinent History GI Medical History: No Pertinent History History: Other Psycho-Social History: No Pertinent History Female Reproductive Disorders: Menstrual Problems Other Medical History: kidney stones - Past Surgical History Past Surgical History: Yes Neuro Surgical History: No Pertinent History Cardiac: No Pertinent History Respiratory: No Pertinent History Gastrointestinal: Other Genitourinary: No Pertinent History Musculoskeletal: No Pertinent History Female Surgical History: Section, Hysterectomy Other Surgical History: FISTULA REPAIR 02/03, cysto - Social History Smoking Status: Current every day smoker How long have you smoked: 27 years Exposure to second hand smoke: Yes Drug Use: none Patient Lives Alone: No - Female History Hx Now: No - Nursing Vital Signs Nursing Vital Signs: Initial Vital Signs Temperature 99.2 F 02/28/22 17:48 Pulse Rate 90 02/28/22 17:48 Respiratory Rate 20 02/28/22 17:48 Blood Pressure 134/85 02/28/22 17:48 O2 Sat by Pulse Oximetry 97 02/28/22 17:48 Pain Scale Pain Intensity 6 - Physical Exam General Appearance: mild distress, alert, anxiety Eyes, Ears, Nose, Throat Exam: normal ENT inspection, moist mucous membranes Neck Exam: normal inspection, non-tender, supple, full range of motion Cardiovascular/Respiratory Exam: chest non-tender, no respiratory distress Gastrointestinal/Abdominal Exam: non-tender Back Exam: normal inspection, normal range of motion, No CVA tenderness, No vertebral tenderness Hips Exam: bilateral: non-tender, normal inspection, normal range of motion, no evidence of injury Legs Exam: bilateral leg: non-tender, normal inspection, normal range of motion, no evidence of injury Knees Exam: bilateral knee: non-tender, normal inspection, normal range of motion, no evidence of injury Ankle Exam: bilateral ankle: non-tender, normal inspection, normal range of motion, no evidence of injury Foot Exam: right foot: non-tender, normal inspection, normal range of motion, no evidence of injury, left foot: bone tenderness (Dorsal aspect left foot), soft tissue tenderness (Dorsal aspect left foot), swelling (Dorsal aspect left foot) Neuro/Tendon Exam: normal sensation, normal motor functions, normal tendon functions, no evidence tendon injury Mental Status Exam: alert, oriented x 3, cooperative Skin Exam: normal color, warm, dry SpO2 Interpretation: normal SpO2: 97 O2 Delivery: Room Air - Course Nursing assessment & vital signs reviewed: Yes Ordered Tests: Active Orders 24 hr Category Date Time Status Cold Application STAT Care 02/28/22 17:42 Active ANKLE (3 VIEWS) Stat Exams 02/28/22 17:44 Taken FOOT (MINIMUM 3 VIEWS) Stat Exams 02/28/22 17:43 Taken Medication Summary Discontinued Medications Generic Name Dose Route Start Last Admin Trade Name Asa PRN Reason Stop Dose Admin Ibuprofen 600 mg 02/28/22 18:49 02/28/22 18:52 Ibuprofen 600 Mg Tablet PO 02/28/22 18:50 600 mg STAT ONE Administration Ibuprofen Confirm 02/28/22 18:51 Ibuprofen 600 Mg Tablet Administered 02/28/22 18:52 Dose 600 mg .ROUTE .STK-MED ONE Oxycodone/Acetaminophen 1 tab 02/28/22 18:49 02/28/22 18:52 Oxycodone Hcl/Apap 5 Mg/325 Mg Tablet PO 02/28/22 18:50 1 tab STAT STA Administration Oxycodone/Acetaminophen Confirm 02/28/22 18:51 Oxycodone Hcl/Apap 5 Mg/325 Mg Tablet Administered 02/28/22 18:52 Dose 1 tab .ROUTE .STK-MED ONE - Progress Progress: improved, pain not gone completely, re-examined Progress Note: 02/28/22 19:44 I originally read the x-ray of the left foot and there was a question of some fractures in the area of the tarsal bones but I wanted to be certain and therefore I sent the x-ray to [facility] to be over read for me. Their impression is negative for fracture or dislocation. There is nonspecific soft tissue swelling over the midfoot. Counseled pt/family regarding: diagnosis, need for follow-up, rad results - Departure Departure Disposition: Home Clinical Impression: Right foot pain, Swelling of right foot Condition: Stable Critical Care Time: No Referrals: BAL BERRY [Primary Care Provider] - Follow up/PCP as directed Additional Instructions: Ice pack to the swollen left foot 3 times a day for the next 48 hours. Keep the left foot elevated above the level your heart for the next 48 hours when not using the crutches. Weightbearing as tolerated. Follow-up with [facility] orthopedic clinic if symptoms are not improved in the next 2 to 3 days. It is a walk-in clinic and you do not need to have an appointment. Clinic hours are 8 AM to 10 AM Wednesday through Wednesday. Prescriptions: Hydrocodone/APAP 5/325 [[place] 5/325 mg] 1 each PO Q12H PRN PRN #5 tablet MDD 2 PRN Reason: Pain
[2022-02-28] MEDS ORDERED: PERCOCET TABLET 5/325MG ONE (18:51)
[2022-02-28] MEDS ORDERED: MOTRIN 600 MG ONE (18:51)
[2022-02-28 19:31] VITALS: BP 122/71; PULSE 84
[2022-02-28 19:48] VITALS: O2SAT 97
[2022-02-28] MEDS ORDERED: NORCO 5/325 MG PO ONE (19:48)
[2022-02-28] MEDS ORDERED: NORCO 5/325 MG ONE (19:49)
--- NOTE | 2022-02-28 23:02 | XRAY ---
Indication: Pain following injury. Comparison: None 3 view left ankle demonstrates small heel spurs and cuboid accessory ossicle. No other bony, articular, or soft tissue abnormalities.
--- NOTE | 2022-02-28 23:02 | XRAY ---
Indication: Pain following injury. Comparison: None 3 view left ankle demonstrates small heel spurs and cuboid accessory ossicle. No other bony, articular, or soft tissue abnormalities.
--- NOTE | 2022-02-28 23:04 | XRAY ---
Indication: Pain following injury. Comparison: None 3 nonweightbearing views left foot demonstrates small heel spurs and cuboid accessory ossicle. No other bony, articular, or soft tissue abnormalities. Comment: Preliminary interpretation made by [facility]. No critical discrepancy.
== END 2022-02-28 19:57 | disposition home or self-care (01) ==
LOC: ED 17:35
DX: M79.672 Pain in left foot (principal); M25.475 Effusion, left foot; X50.0XXA Overexertion from strenuous movement or load, initial encounter; E11.9 Type 2 diabetes mellitus without complications; Z72.0 Tobacco use; Z79.899 Other long term (current) drug therapy; Z79.891 Long term (current) use of opiate analgesic
CPT/HCPCS: 73610; 73630; 99283; A9270-GY

== ENCOUNTER 2024-06-04 04:11 | Emergency (ER) | payer BC ==
[2024-06-04 04:27] VITALS: RESP 16; TEMP 97.1
[2024-06-04] MEDS ORDERED: TORAdol 30 mg Injection ONE (04:31)
[2024-06-04] MEDS: TORAdol 30 mg Injection IV ONE (04:31)
[2024-06-04 04:35] LABS: BASOPHIL % 0.7 % (0.1-1.2); Basophil (Absolute #) 0.06 x10^3/uL (0.01-0.08); Eosinophil % 2.7 % (0.7-5.8); Eosinophil (Absolute #) 0.23 x10^3/uL (0.04-0.36); Hemoglobin 13.7 g/dL (11.2-15.7); IMMATURE GRAN # 0.02 x10^3u/L (0.001-0.031); IMMATURE GRAN % 0.2 % (0.001-0.429); Lymphocyte (Absolute #) 2.59 x10^3/uL (1.18-3.74); Lymphocytes % 30.8 % (19.3-51.7); Mean Cell Volume 96.3 fL (79.4-94.8); Mean Corpuscular Hemoglobin 33.8 pg (25.6-32.2); Mean Corpuscular Hgb Concent. 35.1 g/dL (32.2-35.5); Mean Platelet Volume 10.7 fL (9.4-12.3); Neutrophil % 59.6 % (34.0-71.1); Platelet Count 242 x10^3/uL (182-369); Red Blood Count 4.05 x10^6/uL (3.93-5.22); Red Cell Distribution Width 12.3 % (11.7-14.4); White Blood Count 8.4 x10^3/uL (3.98-10.04)
[2024-06-04 04:42] LABS: Appearance Clear (Clear); Bacteria None Seen /HPF (None Seen); Bilirubin Negative (Negative); Blood Negative (Negative); Epithelial Cells None Seen /HPF (None Seen); Glucose, Urine Negative (Negative); Hyaline Casts NONE SEEN /LPF (0-2); Ketones Negative (Negative); Leukocyte Esterase Negative (Negative); Nitrite Negative (Negative); Ph 5.5 (4.6-8.0); Protein,Urine Dip Negative (Negative); RBC 0-2 /HPF (0-5); Urobilinogen 0.2 mg/dL (0.2); WBC 0-2 /HPF (0-5)
[2024-06-04 04:48] LABS: ALBUMIN 4.6 g/dL (3.5-5.0); ANION GAP 12.3 MEQ/L (5-15); BILIRUBIN,TOTAL 0.2 mg/dL (0.2-1.3); Calcium 9.2 mg/dL (8.4-10.2); Creatinine 1 0.88 mg/dL (0.52-1.04); Potassium 4.2 mmol/L (3.5-5.1); Total Protein 8.2 g/dL (6.3-8.2)
[2024-06-04] MEDS ORDERED: Cyclobenzaprine 10 MG ONE (05:17)
[2024-06-04] MEDS: Cyclobenzaprine 10 MG PO ONE (05:17)
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
[2024-06-04 06:03] VITALS: PULSE 68
--- NOTE | 2024-06-04 06:09 | XRAY ---
CLINICAL HISTORY: flank pain COMPARISON: No prior studies available for comparison. TECHNIQUE: Non-contrast CT of the abdomen and pelvis was performed, with the following protocol: axial images, and reconstructed coronal and sagittal images. No intravenous contrast was administered. One of the following dose reduction techniques was utilized for this exam: Automated exposure control, adjustment of the mA and/or kV according to patient size, and use of iterative reconstruction. FINDINGS: Abdomen: Liver: Enlarged measuring 18 cm. No focal lesions, cysts, or masses were identified given non-contrast study limitation. Gallbladder and Biliary System: The gallbladder is normal in size and shape. No wall thickening, pericholecystic fluid, or gallstones were identified. Pancreas: Pancreatic head, body, and tail are visualized and appear normal in size and density. No pancreatic calcifications were noted. Spleen: Normal in size, shape, and density. No splenic lesions or masses were identified given non-contrast study limitation. Kidneys and Adrenal Glands: Both kidneys are normal in size, shape, and position. Cortical thickness is within normal limits. Tiny nonobstructive right renal calculus at lower pole measuring 3 mm. No hydronephrosis. Adrenal glands are unremarkable. Appendix: The appendix is normal in size without delfina appendiceal fat stranding, and without an appendicolith. No evidence of appendiceal abscess or perforation. Pelvis: Urinary Bladder: Normal in contour and wall thickness. No intraluminal lesions. Uterus: Not seen. Correlate with h/o surgery. No adnexal abnormality. Vagina: Normal in contour and wall thickness. Multiple pelvic phleboliths are seen. Peritoneal and Retroperitoneal Structures: No free fluid or abnormal fluid collections were identified within the abdomen or pelvis. No lymphadenopathy was noted. Bowel: The visualized bowel loops are normal in caliber and appearance. No evidence of bowel obstruction or wall thickening. Bones and Soft Tissues: Pelvic bones and soft tissues are unremarkable. No fractures or abnormal masses were identified. Mild atherosclerotic changes of aorta and iliac vessels. IMPRESSION: 1. Tiny non-obstructive right renal calculus at lower pole measuring 2-3 mm. No hydronephrosis. 2. Hepatomegaly. 3. No acute findings. Electronically Signed by: Elham Domingo MD. (06/04/2024 06:03:34 EST)
[2024-06-04 06:19] VITALS: O2SAT 100
[2024-06-04 06:36] VITALS: BP 118/73
== END 2024-06-04 06:41 | disposition home or self-care (01) ==
LOC: ED 04:11
DX: M62.830 Muscle spasm of back (principal); M54.9 Dorsalgia, unspecified; R16.0 Hepatomegaly, not elsewhere classified; R74.01 Elevation of levels of liver transaminase levels; R10.2 Pelvic and perineal pain; E11.9 Type 2 diabetes mellitus without complications; Z79.899 Other long term (current) drug therapy; Z72.0 Tobacco use
CPT/HCPCS: 36415; 74176; 80053; 81001; 85025; 96374; 99284; 99285; J1885; A9270-GY

== ENCOUNTER 2024-09-06 14:31 | Day surgery (SDC) | payer BC ==
[2013-02-27 12:00] VITALS: BP 103/72
[2024-09-06] MEDS ORDERED: dexAMETHasone sodium phosphate IJ ONE (14:32)
[2024-09-06] MEDS ORDERED: Depo-Medrol 40 MG/ML IM ONE (14:32)
[2024-09-06] MEDS ORDERED: LIDOCAINE HCL 1% AMPUL 5 ML IJ ONE (14:32)
[2024-09-06] MEDS ORDERED: BUPIVACAINE 0.5% VIAL IJ ONE (14:32)
--- NOTE | 2024-09-06 20:47 | XRAY ---
Indication: Left SI joint and piriformis injection. Intraoperative fluoroscopy provided for 23 seconds. 2 digital spot image submitted for interpretation demonstrates posterior needle tip projecting over left SI joint. Second needle tip over left piriformis. Small amount of contrast injected for needle tip placement. Correlate with intraoperative findings/report.
--- NOTE | 2024-09-07 19:24 | XRAY ---
23 seconds of fluoroscopy was used in surgery for a left sacroiliac joint and piriformis injection.
== END 2024-09-06 17:50 | disposition home or self-care (01) ==
LOC: SDC-PAIN 14:31
PROVIDERS: ATTEND Psychiatry & Neurology Pain Medicine
DX: M46.1 Sacroiliitis, not elsewhere classified (principal); M79.18 Myalgia, other site; E11.9 Type 2 diabetes mellitus without complications
CPT/HCPCS: 20552; 27096; 72170; 77002; 82947; J1100; Q9966

== ENCOUNTER 2025-03-14 07:31 | Day surgery (SDC) | payer BC ==
[2013-02-27 12:00] VITALS: BP 103/72
[2025-03-14] MEDS ORDERED: BUPIVACAINE 0.5% VIAL IJ ONE (07:32)
[2025-03-14] MEDS ORDERED: LIDOCAINE HCL 1% 50 MG/5 ML VL IJ ONE (07:32)
[2025-03-14] MEDS ORDERED: methylPREDNISolone acetate IM ONE (07:32)
[2025-03-14] MEDS ORDERED: propofoL IV ONE (08:55)
--- NOTE | 2025-03-14 11:56 | XRAY ---
Indication: Left L4-S1 RFA. Intraoperative fluoroscopy provided for 10 seconds. 3 digital spot images submitted for interpretation demonstrates posterior needle tips projecting over expected left L4-S1 nerve roots. Correlate with intraoperative findings/report.
--- NOTE | 2025-03-14 12:32 | XRAY ---
10 seconds of fluoroscopy was used in surgery for a left L4-S1 RFA.
[2025-03-14] MEDS ORDERED: Lactated Ringers 1,000 ML IV ONE (14:00)
== END 2025-03-14 09:35 | disposition home or self-care (01) ==
LOC: SDC-PAIN 07:31
PROVIDERS: ATTEND Psychiatry & Neurology Pain Medicine
DX: M47.817 Spondylosis without myelopathy or radiculopathy, lumbosacral region (principal); E11.9 Type 2 diabetes mellitus without complications